=== PATIENT | male | born 1965 | race Caucasian/White ===

== ENCOUNTER 2017-11-21 15:09 | Emergency (ER) | payer SELFPAY ==
[2017-11-21 15:38] VITALS: BP 126/85
--- NOTE | 2017-11-21 15:56 | UC ---
Knee Pain HPI - HPI Summary HPI Summary: 52 yo male with left knee pain and swelling x 6 days states he felt a pop while walking then it began to swell up Also gives hx of gout (big toe) Has had a three yr hx of knee and ankle swelling 2 weeks ago his left hand third MCP was red and swollen - History of Current Complaint Chief Complaint: UCLowerExtremity Stated Complaint: SWOLLEN KNEE Time Seen by Provider: 11/21/17 15:42 Hx Obtained From: Patient Onset/Duration: Gradual Onset, Lasting Days Severity Initially: Moderate Severity Currently: Moderate Pain Intensity: 5 Pain Scale Used: 0-10 Numeric Character: Dull, Aching Aggravating Factor(s): Movement, Weight Bearing Alleviating Factor(s): Rest Associated Signs And Symptoms: Positive: Swelling Able to Bear Weight: Yes - Allergies/Home Medications Allergies/Adverse Reactions: Allergies Allergy/AdvReac Type Severity Reaction Status Date / Time No Known Allergies Allergy Verified 11/21/17 15:38 Home Medications: Home Medications Acetaminophen [Tylenol] 11/21/17 [History] Atenolol TAB* [Tenormin TAB* 50 MG] 11/21/17 [History] Ibuprofen [Advil] 600 mg PO 11/21/17 [History] Sertraline HCl [Zoloft] 11/21/17 [History] raNITIdine HCl [Zantac 150 Maximum Streng] 150 mg PO 11/21/17 [History] PMH/Surg Hx/FS Hx/Imm Hx Previously Healthy: Yes - Surgical History Surgical History: None - Family History Known Family History: Positive: Hypertension - Social History Alcohol Use: Daily Substance Use Type: None Smoking Status (MU): Never Smoked Tobacco Review of Systems Constitutional: Negative Skin: Negative Eyes: Negative ENT: Negative Respiratory: Negative Cardiovascular: Negative Gastrointestinal: Negative Genitourinary: Negative Motor: Negative Neurovascular: Negative Musculoskeletal: Arthralgia Neurological: Negative Psychological: Negative Is Patient Immunocompromised?: No All Other Systems Reviewed And Are Negative: Yes Physical Exam Triage Information Reviewed: Yes Appearance: Well-Appearing, No Pain Distress, Well-Nourished Vital Signs: Initial Vital Signs Temp 98.1 F 11/21/17 15:28 Pulse 63 11/21/17 15:28 Resp 16 11/21/17 15:28 BP 126/85 11/21/17 15:28 Pulse Ox 98 11/21/17 15:28 Vital Signs Reviewed: Yes Eyes: Positive: Conjunctiva Clear ENT: Positive: Hearing grossly normal, Uvula midline. Negative: Nasal congestion, Nasal drainage, Tonsillar swelling, Tonsillar exudate, Hoarse voice Neck: Positive: Supple, Nontender, No Lymphadenopathy Respiratory: Positive: Lungs clear, Normal breath sounds, No respiratory distress, No accessory muscle use Cardiovascular: Positive: RRR, No Murmur Musculoskeletal: Positive: Other: - large left knee effusion/tender lateral joint line Neurological: Positive: Alert Skin Exam: Normal Knee Pain Course/Dx - Differential Dx/Diagnosis Provider Diagnoses: left knee effusion. migratory arthralgias of uncertain cause Discharge - Sign-Out/Discharge Documenting (check all that apply): Discharge/Admit/Transfer - Discharge Plan Condition: Stable Disposition: HOME Patient Education Materials: Swollen Knee Joint (ED) Referrals: Espinoza Hackett MD [Medical Doctor] - If Needed Additional Instructions: given your history we are checking some blood work you may need to she a mold cooler - Billing Disposition and Condition Condition: STABLE Disposition: HOME
--- NOTE | 2017-11-21 16:34 | RAD ---
HISTORY: Effusion COMPARISONS: None VIEWS: 4, Frontal, lateral, axial, and oblique views of the right knee FINDINGS: BONE DENSITY: Normal. BONES: There is no displaced fracture. 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 There is a small suprapatellar joint effusion. There is no hemarthrosis. ALIGNMENT: There is no dislocation. SOFT TISSUES: Unremarkable. OTHER FINDINGS: None. IMPRESSION: OSTEOARTHRITIS. SMALL EFFUSION. NO ACUTE OSSEOUS INJURY. IF SYMPTOMS PERSIST, RECOMMEND REPEAT IMAGING.
[2017-11-22 13:43] LABS: Hematocrit 39 % (42-52); Hemoglobin 13.4 g/dl (14.0-18.0); Mean Corpuscular HGB Conc 34 g/dl (31-36); Mean Corpuscular Hemoglobin 29 pg (27-31); Mean Corpuscular Volume 85 fL (80-94); Mean Platelet Volume 8.3 um3 (7.4-10.4); Platelet Count 301 10^3/ul (150-450); Red Blood Count 4.62 10^6/ul (4.0-5.4); Red Cell Distribution Width 14 % (10.5-15); White Blood Count 11.4 10^3/ul (3.5-10.8)
[2017-11-22 14:17] LABS: ABS Basophils 0.1 10^3/ul (0-0.2); ABS Eosinophils 0.2 10^3/ul (0-0.6); ABS Monocytes 0.4 10^3/ul (0-0.8); ABS Neutrophils 8.7 10^3/ul (1.5-7.7); ABS Nucleated RBC 0 10^3/ul; Eosinophil % 2.1 % (0-6); Lymphocyte % 17.4 % (25-47); Nucleated Red Blood Cells % 0.2
--- NOTE | 2017-11-22 16:54 | UC ---
- Progress Note Progress Note: PLEASE CALL PATIENT. SLIGHTLY ELEVATED WHITE BLOOD CELL COUNT AND SED RATE. THESE ARE NONSPECIFIC SIGNS OF INFLAMMATION. AMA AND LYME SEROLOGY ARE STILL PENDING. - FAITH LANDAVERDE MD Discharge - Sign-Out/Discharge Documenting (check all that apply): Post-Discharge Follow Up - Discharge Plan Condition: Stable Disposition: HOME Patient Education Materials: Swollen Knee Joint (ED) Referrals: Espinoza Hackett MD [Medical Doctor] - If Needed Additional Instructions: given your history we are checking some blood work you may need to she a executive manager - Billing Disposition and Condition Condition: STABLE Disposition: HOME
== END 2017-11-21 17:15 | disposition home or self-care (01) ==
LOC: UCEAST 15:09
DX: M25.462 Effusion, left knee (principal); M25.562 Pain in left knee
CPT/HCPCS: 36415; 85025; 85652; 86038; 86618; 99211; G0463